=== PATIENT | male | born 1960 | race Caucasian/White ===

== ENCOUNTER → 2017-07-10 | Outpatient (CLI) | payer BC ==
[~2017-07-10] MED LIST: CEPH500C PO; LRT5 PO; NAPR-1169 PO
--- NOTE | 2017-07-10 17:20 | DIAGNOSTIC IMAGING REPORT ---
L-SPINE MIN 4 VIEWS ROUTINE CLINICAL HISTORY: Low back pain. COMPARISON: None FINDINGS: There are 5 lumbar type vertebra. When measuring from the superior endplate of L1 through the inferior endplate of L4, there is 22 degrees of levoscoliosis of the lumbar spine. No fracture or suspicious lesion is identified within the lumbar spine. There is mild retrolisthesis of L2 on L3 and L3 on L4. There is moderate multilevel degenerative disc disease with disc space narrowing and osteophytosis. There is moderate facet arthrosis. IMPRESSION: 1. Moderate levoscoliosis of the lumbar spine. 2. Moderate multilevel degenerative disc disease and facet arthrosis of the lumbar spine. 3. No lumbar spine fracture. Electronically signed by: Román Brown M.D. 07/10/2017 5:18 PM Dictated Date/Time: 07/10/2017 5:17 PM
== END | disposition home or self-care (01) ==
LOC: C.RAD1850 15:55
PROVIDERS: ATTEND Family Medicine
DX: M54.5 Low back pain (principal); M51.36 Other intervertebral disc degeneration, lumbar region